=== PATIENT | female | born 1985 | race Caucasian/White ===

== ENCOUNTER 2018-02-24 12:48 | Emergency (ER) | payer SELFPAY ==
[2018-02-24] MEDS ORDERED: LIDOCAINE 4%/MENTHOL 1% PATCH TD ONE (13:38)
[2018-02-24] MEDS ORDERED: HYDROCODONE/APAP 5/325 TAB PO ONE (13:38)
[2018-02-24] MEDS ORDERED: IBUPROFEN 200 MG TAB PO ONE (13:38)
--- NOTE | 2018-02-24 13:47 | EDPHY ---
H & P Time Seen by Provider: 02/24/18 13:28 HPI/ROS: CHIEF COMPLAINT: Back pain HISTORY OF PRESENT ILLNESS: Patient is a history prior of sciatica. 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 Much worse with lying flat or standing up or any movement. Not associated with incontinence or weakness or numbness in extremities or fever. Symptoms severe. She took 2 oral ibuprofen without relief. REVIEW OF SYSTEMS: Eye: no change in vision ENT: no sore throat Cardiac: No chest pain Pulmonary: no cough or SOB Abdomen: No vomiting or abdominal pain Musculoskeletal: HPI Skin: no rash Neuro: no headache Constitutional: no fever : no urinary symptoms A comprehensive 10 point review of systems is otherwise negative aside from elements mentioned in the history of present illness. PAST MEDICAL HISTORY: Sciatic as above and ankle surgery Social history: here with , no drug use General Appearance: Alert and conversant, cooperative. Eyes: No scleral icterus. ENT, Mouth: Normal mucous membranes. Respiratory: Normal respiratory effort, breath sounds equal, lungs are clear to auscultation. Cardiovascular: Regular rate and rhythm. Gastrointestinal: Abdomen is soft and non tender. Neurological: Alert, face symmetric, normal motor and sensory in extremities. Toes downgoing bilaterally with no clonus. Patellar reflexes 2+ symmetric. Skin: Warm and dry, no rashes. Musculoskeletal: Lower right paraspinal muscle tenderness, no midline muscle tenderness, tender in the right sciatic notch. Psychiatric: Not agitated. Emergency Department course/MDM: Acute low back pain without neurologic deficit. Differential considered including but not limited to musculoskeletal strain, disc herniation, spinal stenosis, epidural abscess, cauda equina. Currently clinically unlikely to have emergent medical or surgical process. Lidocaine patch, additional ibuprofen, 2 hydrocodone. Referred to on-call primary care provider or her previous provider Irasema Vanessa. 1415: Feeling improved, symptoms decreasing, plan for a little bit more observation and discharge if continues to improve. 1450: ambulatory, feels stable for discharge. Smoking Status: Light smoker Constitutional: Initial Vital Signs Temperature (C) 36.7 C 02/24/18 13:02 Heart Rate 54 L 02/24/18 13:02 Respiratory Rate 16 02/24/18 13:02 Blood Pressure 145/98 H 02/24/18 13:02 O2 Sat (%) 96 02/24/18 13:02 O2 Delivery Mode Room Air Allergies/Adverse Reactions: No Known Allergies Allergy (Unverified 02/24/18 13:06) Home Medications: Medication Instructions Recorded Hydrocodone/APAP 5/325 [Jefferson 1 tab PO Q4-6PRN PRN #11 tab 02/24/18 5/325] Lidocaine [Lidoderm] 1 each TP DAILY #5 adh..patch 02/24/18 Medical Decision Making - Data Points Medications Given: Miscellaneous Information (Patch Removal) 1 ea TD DAILY21 YUE Stop: 08/23/18 20:59 Last Admin: 02/24/18 13:44 Dose: Not Given Discontinued Medications Hydrocodone Bitart/Acetaminophen (Jefferson 5/325) 2 tab PO EDNOW ONE Stop: 02/24/18 13:39 Last Admin: 02/24/18 13:43 Dose: 2 tab Ibuprofen (Motrin) 400 mg PO EDNOW ONE Stop: 02/24/18 13:39 Last Admin: 02/24/18 13:44 Dose: 400 mg Miscellaneous Medication (Icy Hot Lidocaine/Menthol 4%/1% Patch) 1 patch TD EDNOW ONE Stop: 02/24/18 13:39 Last Admin: 02/24/18 13:43 Dose: 1 patch Departure - Departure Disposition: Home, Routine, Self-Care Clinical Impression: Low back pain Qualifiers: Chronicity: acute Back pain laterality: bilateral Sciatica presence: without sciatica Qualified Code(s): M54.5 - Low back pain Condition: Good Instructions: Acute Low Back Pain (ED) Additional Instructions: Primary care referral Mateo or Rasheeda; please follow-up in the next week. Ibuprofen 600 mg by mouth every 8 hr for the next 3 days. Activity as tolerated. Referrals: Joanne Galindo MD [Medical Doctor] - As per Instructions Irasema Vanessa PAC [Physician Mobile Lab Technician] - As per Instructions Prescriptions: Hydrocodone/APAP 5/325 [Jefferson 5/325] 1 tab PO Q4-6PRN PRN #11 tab PRN Reason: For Pain Lidocaine [Lidoderm] 1 each TP DAILY #5 adh..patch
[2018-02-24 14:54] VITALS: BP 138/90
[2018-02-24] MEDS ORDERED: PATCH REMOVAL 1 EA PATCH TD SCH (21:00)
== END 2018-02-24 14:51 | disposition home or self-care (01) ==
DX: M54.5 Low back pain (principal); F17.200 Nicotine dependence, unspecified, uncomplicated